=== PATIENT | female | born 1985 | race Caucasian/White ===

== ENCOUNTER → 2016-11-10 | Outpatient (CLI) | payer OTHER ==
--- OUTSIDE RECORDS SUMMARY | 2016-11-10 07:48 | XMS REPORT ---
Author Author Bettie Davis [facility] Address [address] [place], [place] [id number] Care Team Providers Care Rock Picker Name Role Phone Bettie Davis PCP Unavailable Allergies and Adverse Reactions Name Reaction Notes NO KNOWN DRUG ALLERGIES Plan of Treatment Not available. Medications Active Name Start Date Estimated Completion Date SIG Comments ibuprofen 800 mg oral tablet take 1 tablet by oral route 3 times a day as needed estradiol 0.5 mg oral tablet take 1 tablet (0.5 mg) by oral route once daily Name Start Date Expiration Date SIG Comments hydrocodone-acetaminophen 10-500 mg oral tablet take 1 tablet by oral route every 6 hours as needed for pain Xanax 1 mg oral tablet take 1 tablet by oral route 2 times a day as needed ibuprofen 800 mg oral tablet 07/11/2012 08/10/2012 take 1 tablet (800 mg) by oral route 3 times per day with food prn pain Colace 100 mg oral capsule 07/11/2012 10/09/2012 take 1 capsule (100 mg) by oral route 2 times per day as needed for constipation Percocet 5-325 mg oral tablet 07/11/2012 take 1 - 2 tablets by oral route every 4-6 hours as needed hydrocodone-acetaminophen 10-325 mg oral tablet take 1 tablet by oral route every 4-6 hours as needed for pain Problem List Description Status Onset Back pain Active Vital Signs Date Time BP-Sys(mm[Hg] BP-Leonora(mm[Hg]) HR(bpm) RR(rpm) Temp WT HT HC BMI BSA BMI Percentile O2 Sat(%) 07/09/2015 9:16:00 AM 130 mmHg 70 mmHg 82 bpm 18 rpm 97.8 F 221.125 lbs 65 in 36.80 kg/m2 2.14 m2 97 % 08/08/2012 9:46:00 AM 126 mmHg 81 mmHg 82 bpm 210 lbs 65 in 34.9455 kg/m 2.0901 m 07/05/2012 2:41:00 PM 135 mmHg 78 mmHg 106 bpm 208 lbs 65 in 34.61 kg/m2 2.08 m2 06/14/2012 9:29:00 AM 126 mmHg 75 mmHg 80 bpm 208 lbs 65 in 34.6127 kg/m 2.0801 m Social History Name Description Comments Student (College) Full-time student at [employer] in the [employer] program Alcohol Current some day rarely Tobacco Current every day smoker History of Procedures Date Ordered Description Order Status 06/14/2012 12:00 AM ASSAY OF GONADOTROPIN ([facility]) Returned 06/14/2012 12:00 AM ASSAY OF PROLACTIN Returned 06/14/2012 12:00 AM ASSAY THYROID STIM HORMONE Returned 06/14/2012 12:00 AM ASSAY OF GONADOTROPIN (LH) Returned 06/14/2012 12:00 AM CYTOPATH TBS C/V MANUAL Returned 06/14/2012 12:00 AM SPECIMEN HANDLING OFFICE-LAB Reviewed 06/14/2012 12:00 AM CHYLMD TRACH DNA AMP PROBE Returned 06/14/2012 12:00 AM N.GONORRHOEAE DNA AMP PROB Returned 07/05/2012 12:00 AM COMPLETE CBC W/AUTO DIFF WBC Returned 07/05/2012 12:00 AM Type and screen Returned Results Summary Data and Description Results 06/14/2012 11:27 AM FSH 3.10 mIU/mLLH 2.60 mIU/mLTSH 1.480 uIU/mL 07/05/2012 4:05 PM WBC 8.2 RBC 4.65 HGB 14.30 g/dLHCT 41.40 %MCV 89.0 fLMCH 30.80 pgMCHC 34.50 g/dLRDW CV 12.50 %MPV 10.70 fLPLT 253 GLUCOSE 91.0 mg/ dLSODIUM 139.0 mmol/LPOTASSIUM 3.50 mmol/LCHLORIDE 104.0 mmol/LCO2 25.0 mmol/ LBUN 12.0 mg/dLCREATININE 0.80 mg/dLCALCIUM 9.0 mg/dLeGFR 60 ABO/Rh Type O Positive 07/10/2012 7:00 AM TEST UR NEGATIVE 07/11/2012 6:10 AM WBC 9.5 RBC 3.75 HGB 11.30 g/dLHCT 34.30 %MCV 92.0 fLMCH 30.10 pgMCHC 32.90 g/dLRDW CV 12.50 %MPV 11.10 fLPLT 181 GLUCOSE 128.0 mg/ dLSODIUM 140.0 mmol/LPOTASSIUM 3.80 mmol/LCHLORIDE 111.0 mmol/LCO2 21.0 mmol/ LBUN 11.0 mg/dLCREATININE 0.70 mg/dLCALCIUM 8.10 mg/dLeGFR 60 11/20/2014 3:12 PM C DIFFICILE NEGATIVE -- C DIFF TOXIN NOT DETECTED Ova + Parasite Exam Final report 07/09/2015 9:05 AM WBC 7.8 RBC 4.50 HGB 14.0 g/dLHCT 41.40 %MCV 92.0 fLMCH 31.10 pgMCHC 33.80 g/dLRDW CV 12.20 %MPV 10.40 fLPLT 268 History Of Immunizations Not available. History of Past Illness Name Date of Onset Comments Back pain Anxiety Rectal Bleeding Abdominal Pain Abnormal Uterine Bleeding Jun 14 2012 9:40AM Endometriosis Jun 14 2012 9:40AM Abnormal Uterine Bleeding Jul 05 2012 2:45PM Endometriosis Jul 05 2012 2:45PM Postoperative Visit Aug 08 2012 9:50AM General Medical Exam, School/Work/etc Jul 09 2015 9:20AM Payers Insurance Name Company Name Plan Name Plan Number Policy Number Policy Group Number Start Date [facility] [id number] N/A [facility] [id number] N/A [facility] Plan of [id number] November History of Encounters Visit Date Visit Type Provider 07/09/2015 Office visit Bettie Davis [employer] 11/20/2014 [facility] David Sosa DO 08/08/2012 Surgery Chu Saenz MD 07/10/2012 [facility] Bennett Norwood MD 07/10/2012 [facility] Chu Saenz MD 07/05/2012 Surgery Cuh Saenz MD 06/14/2012 Office visit Chu Saenz MD
--- NOTE | 2016-11-10 09:03 | Diagnostic Imaging Report ---
INDICATION: Right breast pain with right nipple discharge. Ultrasonography of the right breast is performed with attention to the retroareolar region. No cystic or solid mass was identified. There is no significant ductal dilatation. There is no evidence of architectural distortion or suspicious shadowing lesion. IMPRESSION: Unremarkable right breast ultrasound without identification of etiology for bloody nipple discharge. Dictated by: Dictated on workstation # [id number]
--- NOTE | 2016-11-10 20:18 | Diagnostic Imaging Report ---
Bilateral diagnostic mammogram. INDICATION: Right pain and discharge. The current study was also evaluated with a Computer Aided Detection (CAD) system. No prior studies are available for comparison. FINDINGS: The breasts are composed of retroareolar heterogeneously dense breast parenchyma and less prominent parenchymal densities elsewhere in the breast. There is an area of asymmetry in the posterior lateral aspect of the right breast. When evaluated with focal compression view and exaggerated lateral projection, it demonstrates no definite underlying lesion with likely summation artifact of parenchyma resulting in this asymmetry. Benign-appearing calcifications are seen. IMPRESSION: No mammographic evidence of malignancy. Ultrasound was subsequently performed without underlying abnormality seen. Clinical followup is recommended. If nipple discharge persists, consider further evaluation with MRI. ACR BI-RADS Category 1: Negative. Result letter will be mailed to the patient. Note: At least 10% of breast cancer is not imaged by mammography. Dictated by: Dictated on workstation # [id number]
== END ==
LOC: RAD 07:44
PROVIDERS: ATTEND Family Medicine
DX: N64.4 Mastodynia (principal); N64.52 Nipple discharge; Z80.0 Family history of malignant neoplasm of digestive organs
CPT/HCPCS: 76641

== ENCOUNTER → 2016-12-07 | Outpatient (CLI) | payer OTHER ==
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
== END ==
LOC: RAD 14:32
PROVIDERS: ATTEND Nurse Practitioner Community Health
DX: N20.0 Calculus of kidney (principal); R31.9 Hematuria, unspecified; Z87.442 Personal history of urinary calculi
CPT/HCPCS: 74176

== ENCOUNTER → 2017-05-01 | Outpatient (CLI) | payer OTHER ==
--- NOTE | 2017-05-01 12:03 | Diagnostic Imaging Report ---
Multiple multisequence MRI of the thoracic spine performed without intravenous contrast. Indication: Back pain. Findings: The alignment of the thoracic spine is satisfactory. The vertebral body heights are preserved. Disc heights and the hydrated signal is also present. There is no bone marrow signal in the abnormality seen. The spinal cord has a normal caliber, contour and signal seen. There is no significant disc herniation or spinal calcinosis at any level. The neural foramina are patent at all levels. Impression: Unremarkable exam. Dictated by: Dictated on workstation # [id number]
--- NOTE | 2017-05-01 13:48 | Diagnostic Imaging Report ---
PROCEDURE: MRI lumbar spine. TECHNIQUE: Multiplanar, multisequence MRI of the lumbar spine was performed without contrast. INDICATION: Back pain. FINDINGS: There is satisfactory alignment of the lumbar spine. The vertebral body heights are preserved. Disc heights are also preserved. There is minimal disc desiccation at the L4/5 level. There is normal appearance of the cauda equina and conus medullaris. There is no marrow signal abnormality. The spinal canal is relatively wide on a congenital basis. T12/L1: No disc herniation. There is slight facet hypertrophy. No central canal, lateral recess, or foraminal stenosis. L1/2: No disc herniation. There is minimal facet hypertrophy. No spinal canal or foraminal stenosis. L2/3: No disc herniation. There is mild facet hypertrophy. No spinal canal or foraminal stenosis. L3/4: No disc herniation. There is mild facet hypertrophy. No central canal, lateral recess, or foraminal stenosis. L4/5: There is a central disc protrusion and annular tear. There is [id number] facet and ligamentous hypertrophy. No central canal, lateral recess, or foraminal stenosis. L5/S1: No disc herniation or facet hypertrophy. No spinal canal or foraminal stenosis. IMPRESSION: Minimal degenerative changes. No spinal canal or foraminal stenosis at any level. Dictated by: Dictated on workstation # [id number]
== END ==
LOC: RAD 11:00
PROVIDERS: ATTEND Nurse Practitioner Family
DX: M54.6 Pain in thoracic spine (principal)
CPT/HCPCS: 72146; 72148